=== PATIENT | female | born 1960 | race Caucasian/White ===

== ENCOUNTER 2018-02-05 07:15 | Inpatient (IN) | payer OTHER ==
[~2018-02-05] VITALS: Ht 154.9 cm; Wt 89.8 kg
[2018-02-05] MEDS ORDERED: SERTRALINE HCL50 MG PO (09:11)
[2018-02-05] MEDS ORDERED: DICLOFENAC POTA50 MG PO (09:11)
[2018-02-05] MEDS ORDERED: TIZANIDINE HCL4 MG PO (09:12)
[2018-02-05] MEDS ORDERED: TRAMADOL HCL50 MG PO (09:12)
[2018-02-05] MEDS ORDERED: ASPIR-TRIN325 MG PO (09:12)
[2018-02-12] MEDS ORDERED: CEFADROXIL500 MG PO (08:24)
[2018-02-12] MEDS ORDERED: XARELTO10 MG PO (08:24)
[2018-02-12] MEDS ORDERED: PERCOCET 5-3251 EACH PO (08:25)
== END 2018-02-12 12:40 | DRG 470 ==
LOC: SURG 02-09 06:10 → O/R 02-09 06:10 → SURH 02-09 07:15 → SURG 02-09 12:53
PROVIDERS: Orthopaedic Surgery
PROC: 0QND0ZZ Release Right Patella, Open Approach (ICD-10-PCS; 2018-02-09)
PROC: 0SRC0J9 Replacement of Right Knee Joint with Synthetic Substitute, Cemented, Open Approach (ICD-10-PCS; principal; 2018-02-09 18:45)
DX: M17.11 Unilateral primary osteoarthritis, right knee (principal); M80.00XA Age-related osteoporosis with current pathological fracture, unspecified site, initial encounter for fracture; D62 Acute posthemorrhagic anemia